=== PATIENT | female | born 1990 | race Caucasian/White ===

== ENCOUNTER 2016-09-17 08:06 | Emergency (ER) | payer BC, MEDICAID ==
[2016-09-17 08:09] VITALS: BP 122/79
--- NOTE | 2016-09-19 15:44 | ED ---
Babs Anton Auryana, scribed for Gilberto Stringer MD on 09/17/16 at 0850 . - HPI Summary HPI Summary: 26 y/o female presents to ED c/o of contractions after her water broke last night at 10:40. Patient c/o contractions in her lower abdomen every five minutes. The pain radiates to the back, but there is no feeling of downward pressure. Patient stated discharge was a clear fluid. Patient is 38 weeks , estimated delivery date October 04. This is the patient's second full - one miscarriage last summer and one child at home. Her managing wallcovering hanger is Lisa Vivas MS, CNM of [facility] [place]. Patient does not drink or smoke, per nurse. She denies any PMHx or any surgeries. - History of Current Complaint Chief Complaint: EDOBProblems Stated Complaint: 38 WEEKS PREGS , POSSIBLE WATER BROKE, CRAMPING Time Seen by Provider: 09/17/16 08:08 Hx Obtained From: Patient Chief Complaint: Pain - Contractions every five minutes., Other: - Water broke 10:40 last night Onset/Duration: Started Hours Ago - Started after water broke 10:40 last night. Timing: Intermittent - Every five minutes Severity: Mild Current Severity: Mild Pain Intensity: 0 - per triage Location of Pain: Radiates to: - the back Character: Cramping Associated Signs and Symptoms: Positive: Back Pain - pain from contractions radiates to back, Vaginal Bleeding or Discharge - clear fluid - Assessment Hx Now: Yes Expected Date of Delivery: 10/04/16 Hx : 3 Hx Para: 1 SAB: 1 IEA: 0 Vaginal Bleeding Amount: None Contraction Frequency: Every five minutes Contraction Intensity: Mild - Additional Pertinent History Maternal Blood Type and Rh: O Negative - Allergies/Home Medications Allergies/Adverse Reactions: Allergies Allergy/AdvReac Type Severity Reaction Status Date / Time No Known Allergies Allergy Verified 09/17/16 09:18 PMH/Surg Hx/FS Hx/Imm Hx Endocrine/Hematology History: Denies: Hx Diabetes Cardiovascular History: Denies: Hx Hypertension Infectious Disease History: No Infectious Disease History: Denies: Traveled Outside the [place] in Last 30 Days - Family History Known Family History: Positive: Hypertension - Social History Occupation: Unemployed Lives: Alone Alcohol Use: None Hx Substance Use: No Substance Use Type: Reports: None Hx Tobacco Use: No Smoking Status (MU): Never Smoked Tobacco Review of Systems Constitutional: Negative Negative: Fever Eyes: Negative ENT: Negative Cardiovascular: Negative Respiratory: Negative Positive: Abdominal Pain - Contractions, radiates to back Positive: pain - Pain due to contractions Musculoskeletal: Negative Skin: Negative Neurological: Negative Psychological: Normal All Other Systems Reviewed And Are Negative: Yes Physical Exam - Summary Physical Exam Summary: VITAL SIGNS: Reviewed. GENERAL: Patient is a well-developed and nourished female who is lying comfortable in the stretcher. Patient is not in any acute respiratory distress. HEAD AND FACE: Normocephalic and atraumatic. EYES: PERRLA, EOMI x 2, No injected conjunctiva. EARS: Hearing grossly intact. Ear canals and tympanic membranes are WNL. MOUTH: Oropharynx within normal limits. NECK: Supple, trachea is midline, no adenopathy, no JVD. CHEST: Symmetric, no tenderness at palpation LUNGS: Clear to auscultation bilaterally. No wheezing or crackles. CVS: RRR, S1 and S2 present, no murmurs or gallops appreciated. ABDOMEN: Soft, non-tender. Positive distention. Umbilical cords consistent with . Pelvic exam not done as per MS Lisa Vivas from [facility]; she will perform the pelvic exam. Positive bowel sounds. No rebound no guarding , and no masses palpated. No abdominal bruit or pulsations. EXTREMITIES: FROM in all major joints, no edema, no cyanosis or clubbing. NEURO: Alert and oriented x 3. No acute neurological deficits. Speech is normal. SKIN: Dry and warm - Physical Exam Triage Information Reviewed: Yes Vital Signs Reviewed: Yes Diagnostics - Vital Signs Vital Signs Temp Pulse Resp BP Pulse Ox 09/17/16 08:09 98.0 F 109 20 122/79 100 09/17/16 08:07 98.0 F 101 20 122/79 100 - Laboratory Lab Statement: Any lab studies that have been ordered have been reviewed, and results considered in the medical decision making process. Course/Dx - Course Assessment/Plan: 26 y/o female presents to ED c/o of contractions after her water broke last night at 10:40. Patient c/o contractions in her lower abdomen every five minutes. The pain radiates to the back, but there is no feeling of downward pressure. Patient stated discharge was a clear fluid. Patient is 38 weeks , estimated delivery date October 04. This is the patient's second full - one miscarriage last summer and one child at home. Her managing wallcovering hanger is Lisa Vivas MS, CNM of [facility] [place]. Patient does not drink or smoke, per nurse. She denies any PMHx or any surgeries. 27 y/o female is 38 weeks with a rupture of membrane at 10 pm. Patient complains pelvic contractions every 5 min. I spoke with Lisa Vivas MS CNM of [facility] [place] and she requested to send the patient down for a pelvic assessment and other examinations. - Diagnoses Provider Diagnoses: Impending Delivery Discharge - Discharge Plan Condition: Good Disposition: ADMITTED TO [facility] The documentation as recorded by the Babs myers Auryana accurately reflects the service I personally performed and the decisions made by me, Gilberto Stringer MD.
== END 2016-09-17 08:27 | disposition short-term general hospital (02) ==
LOC: ED 08:06
DX: O42.92 Full-term premature rupture of membranes, unspecified as to length of time between rupture and onset of labor (principal); Z3A.38 38 weeks gestation of pregnancy
CPT/HCPCS: 99282

== ENCOUNTER 2016-09-17 08:33 | Inpatient (IN) | payer BC, MEDICAID ==
[2016-09-17 09:15] LABS: ROM Internal QC QC Line Present
[2016-09-17] MEDS ORDERED: Witch Hazel PAD* JAR TOPICAL PRN (17:21)
[2016-09-17] MEDS ORDERED: Acetaminophen TAB* 325 MG PO PRN (17:21)
[2016-09-17] MEDS ORDERED: oxyCODONE/Acetamin 5/325 MG* TAB PO PRN (17:21)
[2016-09-17] MEDS ORDERED: OXYTOCIN* 10 UNITS/ML 1 ML VIAL IM ONE (17:21)
[2016-09-17] MEDS ORDERED: Ibuprofen TAB* 600 MG PO PRN (17:21)
[2016-09-17] MEDS ORDERED: Dibucaine 1% 28.35 GM TUBE PR PRN (17:21)
[2016-09-17] MEDS ORDERED: Glycerin ADULT SUPP PR PRN (17:21)
[2016-09-17] MEDS ORDERED: RHO D Immune Globulin (HUMAN)* 300 MCG = 1,500 I.U. INJ IM ONE (17:21)
[2016-09-17] MEDS: Docusate CAP* 100 MG PO SCH (22:33)
[2016-09-18 07:06] LABS: Hematocrit 33 % (35-47); Hemoglobin 10.4 g/dl (12.0-16.0); Mean Corpuscular HGB Conc 32 g/dl (31-36); Mean Corpuscular Hemoglobin 22 pg (27-31); Mean Corpuscular Volume 71 fL (80-97); Mean Platelet Volume 9 um3 (7.4-10.4); Red Blood Count 4.65 10^6/ul (4.0-5.4); Red Cell Distribution Width 16 % (10.5-15); White Blood Count 12.6 10^3/ul (3.5-10.8)
[2016-09-18 07:22] LABS: Comments Flag Yes
[2016-09-18] MEDS: Docusate CAP* 100 MG PO SCH ×3 (08:28→21:04)
[2016-09-18] MEDS ORDERED: Ferrous Gluconate TAB* 324 MG TAB PO SCH (09:00)
[2016-09-19 07:46] VITALS: BP 110/69
[2016-09-19] MEDS: Docusate CAP* 100 MG PO SCH (08:31)
== END 2016-09-19 10:44 | disposition home or self-care (01) | DRG 560 ==
LOC: MCHOBOUT 08:33 → MCHOB 09:26
PROVIDERS: ADMIT Midwife; ATTEND Midwife
PROC: 10E0XZZ Delivery of Products of Conception, External Approach (ICD-10-PCS; principal; 2016-09-17)
PROC: 10907ZC Drainage of Amniotic Fluid, Therapeutic from Products of Conception, Via Natural or Artificial Opening (ICD-10-PCS; 2016-09-17)
DX: O80 Encounter for full-term uncomplicated delivery (principal); Z37.0 Single live birth; Z3A.38 38 weeks gestation of pregnancy
CPT/HCPCS: 36415; 84112; 85027; 85461; 86900; 86901; A9270-GY; J2590; J2790

== ENCOUNTER 2018-05-15 08:47 | Emergency (ER) | payer BC, MEDICAID, OTHER ==
[2018-05-15 09:05] VITALS: BP 117/80
--- NOTE | 2018-05-15 10:22 | UC ---
Ear Complaint HPI - HPI Summary HPI Summary: Pt with 24 hours ear pain. Woke her from sleep last night. Pt with head congestion over the weekend Improved. No fevers or chills. No nausea vomiting. Patient not take any [id number] medication. Patient apply heat to help with the ear. Patient states she's not pointing. Patient's medications reviewed this visit. - History of Current Complaint Chief Complaint: UCEar Stated Complaint: EAR PAIN Time Seen by Provider: 05/15/18 10:21 Hx Obtained From: Patient Hx Last Menstrual Period: 04/22/18 ?: No Onset/Duration: Gradual Onset Severity Initially: Moderate Severity Currently: Moderate Pain Intensity: 5 Pain Scale Used: 0-10 Numeric - Allergies/Home Medications Allergies/Adverse Reactions: Allergies Allergy/AdvReac Type Severity Reaction Status Date / Time No Known Allergies Allergy Verified 05/15/18 09:06 PMH/Surg Hx/FS Hx/Imm Hx Previously Healthy: Yes - Surgical History Surgical History: None - Family History Known Family History: Positive: Non-Contributory - Social History Occupation: Works From/At Home Lives: With Family Alcohol Use: None Substance Use Type: None Smoking Status (MU): Never Smoked Tobacco - Immunization History Most Recent Influenza Vaccination: declined Most Recent Tetanus Shot: 09/10/13 Most Recent Pneumonia Vaccination: none Review of Systems All Other Systems Reviewed And Are Negative: Yes Constitutional: Positive: Negative Eyes: Positive: Negative ENT: Positive: Ear Ache, Nasal Discharge Respiratory: Positive: Negative Physical Exam - Summary Physical Exam Summary: Vital Signs Reviewed: Yes A+Ox3, no distress Eyes: Conjunctiva Clear, SYEDA. EOM intact and full ENT: Hearing grossly normal right TM ++ fluid, erythema, bulge turbinates mild inflammed. mmoist, uvula midline, no exudate, no erythema Neck: Positive: Supple Respiratory: Positive: No respiratory distress, No accessory muscle use + CTA throughout no w/r Cardiovascular: RRR nl s1, s2 no m/r CBT <2 sec abd soft + BS nt/nd no guarding, no distension Musculoskeletal Exam: SANDOVAL x 4 without difficulty Strength Intact, ROM Intact Neurological: Positive: Alert, + sensation throughout Psychological: Positive: Normal Response To Family Skin: Positive: no rash, no ecchymosis Triage Information Reviewed: Yes Vital Signs: Initial Vital Signs Temp 98 F 05/15/18 09:03 Pulse 89 05/15/18 09:03 Resp 20 05/15/18 09:03 BP 117/80 05/15/18 09:03 Pulse Ox 99 05/15/18 09:03 Ear Complaint Course/Dx - Course Course Of Treatment: Patient presents with 36 hours of right ear pain. Patient with mild sinus congestion. Patient denies fevers or chills. No analgesia taken. On exam patient with right otitis media. Patient with mild sinus congestion. We'll start patient on amoxicillin. Motrin/Tylenol for pain. Flonase. Return precautions. Patient comfortable in agreement with plan. - Differential Dx/Diagnosis Provider Diagnosis: Otitis media Discharge - Sign-Out/Discharge Documenting (check all that apply): Patient Departure All imaging exams completed and their final reports reviewed: No Studies - Discharge Plan Condition: Stable Disposition: HOME Prescriptions: Amoxicillin/Clavulanate TAB* [Augmentin TAB 875*] 875 mg PO BID #20 tab Patient Education Materials: Ear Infection (ED) Referrals: No Primary Care Phys,NOPCP [Primary Care Provider] - Additional Instructions: - Stay well hydrated. Drink plenty of non-alcoholic, non-caffinated beverages. - Alternate ibuprofen (Advil, Motrin) 600mg and Tylenol every 3 hours for pain or fever. Take with food. Do NOT take for more than 4-5 days. - These infections are spread by secretions - do NOT share eating or drinking utensils - clean items you share with other people such as cell phones, computer mouse, TV remote, computer tablets,etc. Once you have been antibiotics for 2 days, change your toothbrush and your pillowcase. - get plenty of restful sleep - humidify the air in the room where you sleep - boil water, run a hot steam shower, vaporizer, cups of water by heat register - okay to take over the counter decongestant and cough medication - contact your doctor or return with questions or concerns - Billing Disposition and Condition Condition: STABLE Disposition: Home
== END 2018-05-15 10:41 | disposition home or self-care (01) ==
LOC: UCEAST 08:47
DX: H66.91 Otitis media, unspecified, right ear (principal); J34.89 Other specified disorders of nose and nasal sinuses
CPT/HCPCS: 99212; G0463

== ENCOUNTER 2021-01-04 12:17 | Inpatient (IN) ==
[2021-01-04] MEDS ORDERED: Buffered Lidocaine 1% SYRIN 1 ml INTRADERM ONE (13:13)
[2021-01-04] MEDS ORDERED: Lactated Ringers 1000 ml BAG 1,000 ML IV ONE (13:13)
[2021-01-04 13:39] LABS: ABS Eosinophils 0.1 10^3/ul (0-0.6); ABS Lymphocytes 1.2 10^3/ul (1.0-4.8); ABS Monocytes 0.7 10^3/ul (0-0.8); ABS Neutrophils 6.2 10^3/ul (1.5-7.7); Eosinophil % 1.2 %; Hematocrit 36 % (35-47); Hemoglobin 11.7 g/dL (12.0-16.0); Lymphocyte % 14.8 %; Mean Corpuscular HGB Conc 33 g/dL (31-36); Mean Corpuscular Hemoglobin 26 pg (27-31); Mean Corpuscular Volume 78 fL (80-97); Mean Platelet Volume 9.1 fL (7.4-10.4); Nucleated Red Blood Cells % 0.1; Platelet Count 259 10^3/uL (150-450); Red Blood Count 4.57 10^6 /uL (3.70-4.87); Red Cell Distribution Width 14 % (10-15); White Blood Count 8.2 10^3/uL (3.5-10.8)
[2021-01-04 13:51] LABS: Urine Benzodiazepine Screen None Detected (None Detect); Urine Cannabinoids Screen None Detected (None Detect); Urine Opiates Screen None Detected (None Detect)
[2021-01-04 13:51] LABS: Rapid COVID-19 Molecular Undetected (Undetected)
[2021-01-04] MEDS ORDERED: Lactated Ringers 1000 ml BAG 1,000 ML IV SCH ×2 (14:00→21:00)
[2021-01-04] MEDS ORDERED: Oxytocin in LR 20 UNITS/1,000 ML BAG IVPB SCH ×2 (14:00→21:00)
[2021-01-04] MEDS ORDERED: RHO D Immune Globulin (HUMAN) 300 MCG = 1,500 I.U. INJ IM PRN (20:20)
[2021-01-04] MEDS ORDERED: Dibucaine 1% OINT 28.35 GM TUBE PR PRN (20:20)
[2021-01-04] MEDS ORDERED: Glycerin ADULT 2.4 gm SUPP PR PRN (20:20)
[2021-01-04] MEDS ORDERED: witch hazeL 43% TOP.SOLN 200 ML PHA COMPOUND TOPICAL PRN (20:24)
[2021-01-05 07:20] LABS: ABS Basophils 0.1 10^3/ul (0-0.2); ABS Eosinophils 0.1 10^3/ul (0-0.6); ABS Lymphocytes 1.9 10^3/ul (1.0-4.8); ABS Neutrophils 9.1 10^3/ul (1.5-7.7); Eosinophil % 0.6 %; Hematocrit 32 % (35-47); Hemoglobin 10.9 g/dL (12.0-16.0); Lymphocyte % 15.5 %; Mean Corpuscular HGB Conc 34 g/dL (31-36); Mean Corpuscular Hemoglobin 26 pg (27-31); Mean Corpuscular Volume 77 fL (80-97); Mean Platelet Volume 9.1 fL (7.4-10.4); Platelet Count 249 10^3/uL (150-450); Red Blood Count 4.19 10^6 /uL (3.70-4.87); Red Cell Distribution Width 14 % (10-15); White Blood Count 12.1 10^3/uL (3.5-10.8)
[2021-01-06 08:45] VITALS: BP 117/86
== END 2021-01-06 12:50 | disposition home or self-care (01) | DRG 560 ==
LOC: MCHOBOUT 12:17 → MCHOB 13:11
PROVIDERS: ADMIT Midwife; ATTEND Midwife